=== PATIENT | female | born 1940 | race Caucasian/White ===

== ENCOUNTER 2023-02-05 22:31 | Emergency (ER) | payer MEDICARE ==
[~2023-02-05] VITALS: Ht 157.5 cm; Wt 81.6 kg
[2023-02-05 22:48] VITALS: BP_SYST 173; PULSE 73; RESP 19; TEMP 97.6; O2SAT 98
[2023-02-05 23:16] LABS: BILIRUBIN,URINE NEGATIVE (NEGATIVE); BLOOD, URINE TRACE (NEGATIVE); CLARITY/URINE CLEAR (CLEAR); COLOR,URINE YELLOW (YELLOW); GLUCOSE,URINE NEGATIVE (NEGATIVE); KETONES,URINE NEGATIVE (NEGATIVE); PH,URINE 5.5 (5.0-8.0); PROTEIN URINE TRACE (NEGATIVE)
[2023-02-05 23:17] LABS: LEUKOCYTE ESTERASE ,URINE NEGATIVE (NEGATIVE); NITRITE, URINE NEGATIVE (NEGATIVE); UROBILINOGEN,URINE 0.2 (0.2-1.0)
[2023-02-05 23:21] LABS: BACTERIA,URINE RARE /HPF (None Seen); RBC,URINE 0-3 /HPF (0-3)
[2023-02-05 23:35] VITALS: BP_SYST 161; PULSE 69; RESP 20; TEMP 97.6; O2SAT 98
== END 2023-02-05 23:35 | disposition home or self-care (01) ==
LOC: SED 22:31
DX: R55 Syncope and collapse (principal); R50.9 Fever, unspecified; R42 Dizziness and giddiness; I10 Essential (primary) hypertension; Z79.899 Other long term (current) drug therapy
CPT/HCPCS: 81000; 82962; 93005; 99284